=== PATIENT | female | born 1955 | race Two or more races ===

== ENCOUNTER 2024-10-03 15:49 | Emergency (ER) | payer OTHER ==
[~2024-10-03] VITALS: Ht 160 cm; Wt 80.7 kg
--- NOTE | 2024-10-03 16:06 | ECG ---
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
[2024-10-03 16:39] VITALS: PULSE 75; RESP 17; O2SAT 94
[2024-10-03] MEDS: hydrALAZINE HCL 20 MG/ML VL IV ONE (16:39)
[2024-10-03 16:51] LABS: Basophils # (auto) 0.1 10 ^3/uL (0-0.2); Eosinophils # (auto) 0.1 10 ^3/uL (0-0.8); Hematocrit 43.9 % (36.0-46.0); Hemoglobin 14.7 g/dL (12.2-16.2); Lymphocytes # (auto) 1.6 10 ^3/uL (0.4-5.4); Lymphocytes % (auto) 26.1 % (10.0-50.0); Mean Corpuscular Hgb Conc. 33.4 g/dL (32.0-36.0); Monocytes # (auto) 0.4 10 ^3/uL (0-1.3); Monocytes % (auto) 6.8 % (0.0-12.0); Neutrophils # (auto) 3.9 10 ^3/uL (1.6-8.6); Neutrophils % (auto) 64.1 % (37.0-80.0); Nucleated Red Blood Cells % 0.1 %; Platelet Count (auto) 275 10^3/uL (140-450); Red Blood Cells 5.05 10^6/uL (4.0-5.20); Red Cell Distribution Width 14.4 % (11.8-14.3)
--- NOTE | 2024-10-03 16:54 | DVH ---
CHEST RADIOGRAPH Indication: [facility] bp Technique: Single frontal view of the chest was obtained COMPARISON: None FINDINGS: Lines and Tubes: None Lungs: Clear Pleura: No effusion. No pneumothorax. Cardiomediastinal contours: Cardiomegaly Bones: Unremarkable IMPRESSION: No acute disease.
[2024-10-03 17:00] LABS: Chloride 102 mmol/L (98-107); Sodium 140 mmol/L (136-145)
[2024-10-03 17:01] LABS: Anion Gap 11 (5-15); Calcium 9.5 mg/dL (8.7-10.4); Carbon Dioxide 27 mmol/L (20-31)
[2024-10-03 17:06] LABS: BUN/Creatinine Ratio 20.8 (10.0-20.0); Blood Urea Nitrogen 15 mg/dL (9-23)
[2024-10-03 17:11] LABS: Glucose 115 mg/dL (74-106); Potassium 3.1 mmol/L (3.5-5.1)
[2024-10-03] MEDS: LABETALOL HCL 20 MG/4 ML VL IV ONE (18:15)
[2024-10-03 19:22] VITALS: BP 208/104; TEMP 98.7
--- NOTE | 2024-10-03 19:44 | ED.PDOC ---
History of Present Illness HPI Comments 68-year-old female brought in by EMS from home for evaluation of elevated blood pressure. Patient states she has a history of hypertension but has been off of meds for the past year. She recently established a new health insurance plan and had a home health visit today during which her blood pressure was found to be 201/115. EMS was called and on their evaluation, blood pressure was 211/105. Patient denies any headache, chest pain, shortness a breath or other symptoms. She occasionally has ringing in her ears, but is otherwise asymptomatic. 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 Moist mucous membranes.) Neck: Full Range of Motion, Normal Inspection Respiratory: Lungs Clear, No Accessory Muscle Use, No Respiratory Distress, Normal Breath Sounds Cardiovascular: No Edema, No JVD, Regular Rate/Rhythm Breast Exam: Deferred Gastrointestinal: Non Tender, Soft Genitalia: Deferred Pelvic: Deferred Rectal: Deferred Extremities: Normal inspection, Normal range of motion, Non-tender, No pedal edema Neurologic: Alert (Oriented x4), Normal Affect, Normal Mood, Other (Ambulatory without difficulty. No gross focal deficit.) Cerebellar Function: NOT DONE Reflexes: NOT DONE Skin: Dry, Normal Color, Warm Lymphatic: NOT DONE Was a procedure done? Was a procedure done?: No EKG EKG : Comments Sinus rhythm, rate 83, normal [place] and QRS intervals, QTC prolonged at 481, LVH, nonspecific T changes. Differential Dx Considerations may include: Hypertensive urgency/emergency, CHF, WI, renal failure, among others X-Ray, Labs, Meds, VS Vital Signs Date Time Temp Pulse Resp B/P (MAP) Pulse Ox O2 Delivery O2 Flow Rate FiO2 10/03/24 20:43 148/55 10/03/24 20:32 77 20 94 Room Air* 0 21 10/03/24 19:46 212/83 10/03/24 19:22 98.7 81 12 208/104 (138) 98.7 10/03/24 19:15 77 208/104 10/03/24 18:35 75 16 171/78 (109) 96 10/03/24 18:15 81 197/81 10/03/24 18:15 81 17 197/81 (119) 94 10/03/24 16:39 75 17 212/91 (131) 94 10/03/24 16:39 75 17 94 Room Air* 0 21 10/03/24 16:39 212/91 10/03/24 16:01 97.5 88 18 202/149 (166) 98 10/03/24 16:01 83 Lab Test 10/03/24 17:43 10/03/24 16:27 Range/Units Troponin I High Sensitivity 32 15 </=34 ng/L White Blood Count 6.0 4.4-10.8 10^3/uL Red Blood Count 5.05 4.0-5.20 10^6/uL Hemoglobin 14.7 12.2-16.2 g/dL Hematocrit 43.9 36.0-46.0 % Mean Corpuscular Volume 87.0 80.0-100.0 fL Mean Corpuscular Hemoglobin 29.0 28.0-32.0 pg Mean Corpuscular Hemoglobin Concent 33.4 32.0-36.0 g/dL Red Cell Distribution Width 14.4 H 11.8-14.3 % Platelet Count 275 140-450 10^3/uL Mean Platelet Volume 7.7 6.9-10.8 fL Neutrophils (%) (Auto) 64.1 37.0-80.0 % Lymphocytes (%) (Auto) 26.1 10.0-50.0 % Monocytes (%) (Auto) 6.8 0.0-12.0 % Eosinophils (%) (Auto) 2.0 0.0-7.0 % Basophils (%) (Auto) 1.0 0.0-2.0 % Neutrophils # (Auto) 3.9 1.6-8.6 10 ^3/uL Lymphocytes # (Auto) 1.6 0.4-5.4 10 ^3/uL Monocytes # (Auto) 0.4 0-1.3 10 ^3/uL Eosinophils # (Auto) 0.1 0-0.8 10 ^3/uL Basophils # (Auto) 0.1 0-0.2 10 ^3/uL Nucleated Red Blood Cells 0.1 % Sodium Level 140 136-145 mmol/L Potassium Level 3.1 L 3.5-5.1 mmol/L Chloride Level 102 98-107 mmol/L Carbon Dioxide Level 27 20-31 mmol/L Anion Gap 11 5-15 Blood Urea Nitrogen 15 9-23 mg/dL Creatinine 0.72 0.550-1.02 mg/dL Glomerular Filtration Rate Calc 91 >90 mL/min BUN/Creatinine Ratio 20.8 H 10.0-20.0 Serum Glucose 115 H 74-106 mg/dL Calcium Level 9.5 8.7-10.4 mg/dL B-Type Natriuretic Peptide 140.90 0-100 pg/mL Current Medications Medications (Trade) Dose Ordered Sig/Rosemary Route Start Time Stop Time Status Last Admin Hydralazine HCl (Apresoline Injection) 10 mg ONCE ONCE IV 10/03/24 16:15 10/03/24 16:16 DC 10/03/24 16:39 Labetalol HCl (Labetalol HCl) 10 mg ONCE ONCE IV 10/03/24 17:45 10/03/24 17:46 DC 10/03/24 18:15 Enalaprilat (Vasotec Injection) 2.5 mg ONCE ONCE IV 10/03/24 19:45 10/03/24 19:46 DC 10/03/24 19:46 Potassium Chloride (Klor-Con Tablet) 40 meq ONCE ONCE PO 10/03/24 20:00 10/03/24 20:20 DC 10/03/24 20:30 PROCEDURE(s): CXRP - CHEST PORTABLE REASON: [facility] bp ORDER NUMBER(s): [id number], ACCESSION NUMBER(s): [id number] CHEST RADIOGRAPH Indication: [facility] bp Technique: Single frontal view of the chest was obtained COMPARISON: None FINDINGS: Lines and Tubes: None Lungs: Clear Pleura: No effusion. No pneumothorax. Cardiomediastinal contours: Cardiomegaly Bones: Unremarkable IMPRESSION: No acute disease. X-Ray, Labs, Meds, VS Comment 68-year-old female with a history of hypertension brought in by EMS from home for evaluation of elevated blood pressure of 211/105 Vitals remarkable for initial blood pressure of 202/149 Exam unremarkable Rhythm strip independently interpreted by me: Sinus rhythm, rate 83, no ectopy. Chest x-ray unremarkable CBC unremarkable, metabolic panel remarkable for potassium 3.1, troponin negative x2, BNP 140.9 Patient treated with the following in the ED: Hydralazine 10 mg IV, labetalol 10 mg IV, Vasotec 2.5 mg IV, potassium chloride 40 mEq p.o. On re-evaluation, patient's blood pressure is still elevated at 212/83. Plan is to admit the patient for pressure control. Time of 1ST Reevaluation: 20:07 Reevaluation 1ST: Improved Patient Education/Counseling: Diagnosis, Treatment Family Education/Counseling: No Family Present Departure 1 Departure Time of Disposition: 20:07 Impression: Primary Impression: Hypertensive urgency Disposition: 09 ADMITTED INPATIENT Admit to: Tele Condition: Guarded Critical Care Note Critical Care Time?: No Stability Stability form required: No Heart Score Heart Score: Heart Score Response (Comments) Value History N/A 0 EKG N/A 0 Age N/A 0 Risk Factors N/A 0 Troponin N/A 0 Total 0 LEONARD ROBERTS MD Oct 03, 2024 19:44
[2024-10-03] MEDS: ENALAPRILAT 1.25 MG/ML-1ML VIAL IV ONE (19:46)
[2024-10-03] MEDS: POTASSIUM CHL 20 Meq TABLET PO ONE (20:30)
[2024-10-03 20:32] VITALS: PULSE 77; RESP 20; O2SAT 94
== END 2024-10-03 20:43 | disposition left against medical advice (07) ==
LOC: EDBD 15:49 → ER 15:49
DX: I16.0 Hypertensive urgency (principal)
CPT/HCPCS: 36415; 71045; 80048; 83880; 84484; 85025; 93005; 96374; 96375; 99285; J0360